=== PATIENT | female | born 1950 | race Hispanic/Latino ===

== ENCOUNTER 2018-01-19 05:47 | Day surgery (SDC) | payer OTHER ==
[2018-01-17 10:39] VITALS: BP 155/71
[2018-01-17 10:48] LABS: APPEARANCE,URINE Clear (CLEAR); BASOPHILS % (AUTO) 0.8 % (0.0-5.0); BILIRUBIN,URINE Negative (NEGATIVE); COLOR,URINE Dark Yellow (YELLOW); EOSINOPHILS % (AUTO) 1.5 % (0.0-8.0); GLUCOSE, URINE (UA) 500 mg/dL (NEGATIVE); HEMATOCRIT 39.9 % (36-48); KETONES,URINE Negative (NEGATIVE); LEUKOCYTE ESTERASE ,URINE Trace (NEGATIVE); LYMPHOCYTES % (AUTO) 34.3 % (21.0-51.0); MEAN CORPUSCULAR HEMOGLOBIN 32.8 pg (27.0-33.0); MEAN CORPUSCULAR HGB CONC 34.4 g/dL (32.0-36.0); MEAN CORPUSCULAR VOLUME 95.3 fL (79-99); NEUTROPHILS % (AUTO) 54.4 % (40.0-77.0); NITRATE,URINE Negative (NEGATIVE); OCCULT BLOOD,URINE Negative (NEGATIVE); PLATELET COUNT (AUTO) 194 K/uL (130-400); PROTEIN,URINE Negative (NEGATIVE); RED BLOOD CELL COUNT(AUTO) 4.18 MIL/uL (4.00-5.50); RED CELL DISTRIBUTION WIDTH 13.7 % (11.0-15.5); UROBILINOGEN,URINE 0.2 mg/dL (0.2-1.0); WHITE BLOOD COUNT (AUTO) 6.6 K/uL (4.8-10.8)
[2018-01-17 10:56] LABS: CREATININE 0.8 mg/dL (0.5-1.5); POTASSIUM 4.3 mmol/L (3.5-5.1)
[2018-01-17 11:00] LABS: BACTERIA,URINE Rare /HPF (None Seen); RBC,URINE None Seen /HPF (0-1); SQUAMOUS EPITHELIAL CELL,UR 0-2 /HPF (0-2); WBC,URINE 0-1 /HPF (0-1)
[2018-01-17 11:33] LABS: INR 1.13 (0.85-1.15); PARTIAL THROMBOPLASTIN TIME 26.1 SEC (26.3-35.5); PROTHROMBIN TIME 11.8 SEC (9.6-11.6)
[2018-01-19] VITALS (9 sets, daily range): BP systolic 114–178; BP diastolic 60–74
[~2018-01-19] VITALS: Ht 162.6 cm; Wt 93.4 kg
[~2018-01-19 05:47] MED LIST: ADV250 IH; ASPI-1005 PO; DORZ210OS OU; ESCI20TA36 PO; GLIP5TAB11 PO; LISI10TA7 PO; METF10004 PO; OMEGA 3 PO; PERFECT BIOTICS PO; SUPER B COMPLEX PO; VITAMIN A PO
[2018-01-19] MEDS ORDERED: IOPAMIDOL-370 100 ML VIAL IV ONE (07:15)
[2018-01-19] MEDS ORDERED: HEPARIN SODIUM 1000UNIT/ML 10ML VIAL ONE (07:15)
[2018-01-19] MEDS ORDERED: ISOVUE-370 50ML VIAL IV ONE (07:15)
[2018-01-19] MEDS ORDERED: SODIUM BICARB 50MEQ 50ML VIAL ONE (07:15)
[2018-01-19] MEDS ORDERED: LIDOCAINE HCL 2% 20ML ONE (07:15)
[2018-01-19] MEDS ORDERED: NITROGLYCERIN 5 MG/ML 10 ML VIAL IV ONE (07:15)
[2018-01-19] MEDS ORDERED: MEPERIDINE-PF 25 MG/ML SYG ONE ×2 (07:30→07:42)
[2018-01-19] MEDS ORDERED: MIDAZOLAM HCL 1 MG/ML 2ML VIAL ONE ×2 (07:30→07:42)
[2018-01-19] MEDS ORDERED: METOPROLOL TARTRATE 1 MG/ML 5ML VIAL IV ONE ×3 (07:57→08:09)
[2018-01-19] MEDS ORDERED: SODIUM CHLORIDE 0.9% 10 ML VIAL IVP SCH (08:30)
[2018-01-19] MEDS ORDERED: DEXTROSE 50%-WATER 50 ML DISP.SYRIN IV PRN (08:30)
[2018-01-19] MEDS ORDERED: GLUCAGON 1MG KIT 1 MG ML IM PRN (08:30)
[2018-01-19] MEDS ORDERED: POTA20TA12 PO (08:38)
[2018-01-19] MEDS ORDERED: METO25TA6 PO (08:38)
[2018-01-19] MEDS ORDERED: FURO-151 PO (08:38)
[2018-01-19] MEDS ORDERED: INSULIN HUMULIN R 100 UNIT/ML 3ML SQ SCH (11:30)
== END 2018-01-19 13:20 | disposition home or self-care (01) ==
LOC: DAH 05:47
PROVIDERS: ATTEND Internal Medicine Cardiovascular Disease
DX: I25.118 Atherosclerotic heart disease of native coronary artery with other forms of angina pectoris (principal); I35.0 Nonrheumatic aortic (valve) stenosis; Z79.01 Long term (current) use of anticoagulants; I10 Essential (primary) hypertension; J44.9 Chronic obstructive pulmonary disease, unspecified; E78.5 Hyperlipidemia, unspecified; E11.9 Type 2 diabetes mellitus without complications; Z86.73 Personal history of transient ischemic attack (TIA), and cerebral infarction without residual deficits; Z98.890 Other specified postprocedural states; Z85.3 Personal history of malignant neoplasm of breast; Z83.3 Family history of diabetes mellitus; Z82.49 Family history of ischemic heart disease and other diseases of the circulatory system; Z79.899 Other long term (current) drug therapy; Z68.32 Body mass index [BMI] 32.0-32.9, adult
CPT/HCPCS: 36415; 71045; 80048; 81001; 82948 ×2; 85025; 85610; 85730; 93005; 93460; 99152 ×2; 99153; A4606; C1760; C1769; C1893; C1894 ×2; J1644; J2175 ×2; J2250 ×2; J3490 ×6; Q9967 ×2; 99156; 99157

== ENCOUNTER 2018-01-30 09:00 | Inpatient (IN) | payer OTHER ==
[~2018-01-30] VITALS: Ht 162.6 cm; Wt 88.0 kg
[~2018-01-30 09:00] MED LIST changes: -ASPI-1005 PO; -ESCI20TA36 PO; +FURO-151 PO; +METO25TA6 PO; +POTA20TA12 PO
[2018-01-30 11:11] LABS: BASOPHILS % (AUTO) 1.1 % (0.0-5.0); EOSINOPHILS % (AUTO) 1.5 % (0.0-8.0); HEMATOCRIT 41.9 % (36-48); LYMPHOCYTES % (AUTO) 37.8 % (21.0-51.0); MEAN CORPUSCULAR HEMOGLOBIN 32.7 pg (27.0-33.0); MEAN CORPUSCULAR HGB CONC 34.8 g/dL (32.0-36.0); MEAN CORPUSCULAR VOLUME 94.1 fL (79-99); MONOCYTES % (AUTO) 6.9 % (3.0-13.0); NEUTROPHILS % (AUTO) 52.7 % (40.0-77.0); NUCLEATED RED BLOOD CELLS 0.1 % (0.0-0.19); PLATELET COUNT (AUTO) 235 K/uL (130-400); RED BLOOD CELL COUNT(AUTO) 4.46 MIL/uL (4.00-5.50); RED CELL DISTRIBUTION WIDTH 13.3 % (11.0-15.5); WHITE BLOOD COUNT (AUTO) 7.6 K/uL (4.8-10.8)
[2018-01-30 11:15] VITALS: BP 132/68
[2018-01-30 11:18] LABS: HEMOGLOBIN A1C 7.8 % (4.0-6.0)
[2018-01-30] MEDS ORDERED: ASPI-555 PO (11:19)
[2018-01-30 11:30] LABS: ALBUMIN 4.1 g/dL (3.5-5.0); BILIRUBIN,TOTAL 0.5 mg/dL (0.2-1.0); CREATININE 0.8 mg/dL (0.5-1.5); POTASSIUM 4.3 mmol/L (3.5-5.1); TOTAL PROTEIN, SERUM 8.5 g/dL (6.0-8.3)
[2018-01-30 11:42] LABS: INR 1.15 (0.85-1.15); PARTIAL THROMBOPLASTIN TIME 26.1 SEC (26.3-35.5)
[2018-01-31] VITALS (16 sets, daily range): BP systolic 127–194; BP diastolic 44–90
[2018-01-31] MEDS ORDERED: SODIUM CHLORIDE 0.9% 1000ML 1,000 ML IV ONE ×2 (06:39→11:19)
[2018-01-31] MEDS ORDERED: BACITRACIN 50,000 UNIT VIAL ONE (06:53)
[2018-01-31] MEDS ORDERED: NITROGLYCERIN 50 MG/D5% WATER 1 BOT ONE (07:21)
[2018-01-31] MEDS ORDERED: ROCURONIUM BROMIDE 10MG/1ML 5ML VL ONE ×3 (07:22→10:07)
[2018-01-31] MEDS ORDERED: CEFUROXIME SODIUM 1.5 GM VIAL IVP ONE (08:00)
[2018-01-31] MEDS: CEFUROXIME SODIUM 1.5 GM VIAL ONE ×2 (08:01→08:30)
[2018-01-31] MEDS ORDERED: MILRINONE-D5W 20 MG/100 ML 100 ML IV ONE (08:09)
[2018-01-31] MEDS ORDERED: EPINEPHRINE 1 MG/ML AMPULE ONE (08:09)
[2018-01-31] MEDS ORDERED: NEOSTIGMINE 5MG/5ML SYR IV ONE (08:09)
[2018-01-31] MEDS ORDERED: HEPARIN SODIUM 1000UNIT/ML 10ML VIAL ONE (08:09)
[2018-01-31] MEDS ORDERED: ESMOLOL HCL 10 MG/ML 10 ML VIAL ONE (08:09)
[2018-01-31] MEDS ORDERED: GLYCOPYRROLATE 0.2 MG/ML 5 ML VIAL ONE (08:09)
[2018-01-31] MEDS ORDERED: PROTAMINE SULFATE 10 MG/ML 25ML VIAL IV ONE (08:09)
[2018-01-31] MEDS ORDERED: LIDOCAINE PF 2% 5ML ABBOJECT ONE (08:09)
[2018-01-31] MEDS ORDERED: AMINOCAPROIC ACID 250 MG/ML 20 ML VIAL IV ONE ×2 (08:10→12:00)
[2018-01-31] MEDS ORDERED: FENTANYL CITRATE PF 50 MCG/1 ML 20ML VIAL IJ ONE (08:10)
[2018-01-31] MEDS ORDERED: NOREPINEPHRINE BITARTRATE 1 MG/1 ML ML IV ONE (08:10)
[2018-01-31] MEDS ORDERED: PROPOFOL 10 MG/ML 20ML VIAL IV ONE (08:10)
[2018-01-31] MEDS ORDERED: MIDAZOLAM HCL 1 MG/ML 5ML VIAL ONE (08:10)
[2018-01-31] MEDS ORDERED: THROMBIN-JMI 5000 UNIT/VIAL TP ONE (08:45)
[2018-01-31] MEDS ORDERED: DELNIDO FORMULA 2 BAG IV ONE (08:45)
[2018-01-31 08:47] LABS: ABG BASE EXCESS -0.7 mmol/L (-2.0-3.0); ABG HCO3 23.9 mmol/L (21.0-28.0); ABG OXYGEN SATURATION 99.6 % (95.0-99.0); ABG PCO2 40 mmHg (32-45)
[2018-01-31] MEDS ORDERED: INSULIN HUMULIN R 100 UNIT/ML 3ML ONE (09:58)
[2018-01-31 10:04] LABS: ABG HCO3 24.4 mmol/L (21.0-28.0); ABG OXYGEN SATURATION 99.4 % (95.0-99.0); ABG PCO2 43 mmHg (32-45)
[2018-01-31] MEDS ORDERED: METHYLPREDNISOLONE SOD SUCC 1,000 MG/8 ML ML IV ONE (10:18)
[2018-01-31 10:34] LABS: ABG BASE EXCESS -5.4 mmol/L (-2.0-3.0); ABG HCO3 20.1 mmol/L (21.0-28.0); ABG OXYGEN SATURATION 99.3 % (95.0-99.0); ABG PCO2 39 mmHg (32-45)
[2018-01-31] MEDS ORDERED: SODIUM CHLORIDE 0.9% 500ML 500 ML IV SCH (10:50)
[2018-01-31] MEDS ORDERED: EPINEPHRINE 2 MG in SODIUM CHLORIDE 0.9% 250 ML IV PRN (11:00)
[2018-01-31] MEDS ORDERED: MORPHINE SULFATE 4 MG/1ML SYG IV PRN (11:00)
[2018-01-31] MEDS ORDERED: POTASSIUM PHOS 15 mMOL+NS250ML 250 ML IV PRN (11:00)
[2018-01-31] MEDS ORDERED: CALCIUM GLUCONATE 1 GM in SODIUM CHLORIDE 0.9% 50 ML IV PRN (11:00)
[2018-01-31] MEDS ORDERED: ONDANSETRON HCL 4 MG/2 ML VIAL IV PRN (11:00)
[2018-01-31] MEDS ORDERED: ACETAMINOPHEN 650 MG SUPPOSITORY RC PRN (11:00)
[2018-01-31] MEDS ORDERED: GLUCAGON 1MG KIT 1 MG ML IM PRN (11:00)
[2018-01-31] MEDS ORDERED: AMINOCAPROIC ACID 15,000 MG in SODIUM CHLORIDE 0.9% 250 ML IV SCH (11:00)
[2018-01-31] MEDS ORDERED: SODIUM CHLORIDE 0.9% 1000ML 1,000 ML IV SCH (11:00)
[2018-01-31] MEDS ORDERED: SODIUM CHLORIDE 0.9% 10 ML VIAL IVP PRN (11:00)
[2018-01-31] MEDS ORDERED: NOREPINEPHRINE 4MG/NS 250ML 250 ML IV PRN (11:00)
[2018-01-31] MEDS ORDERED: NICARDIPINE HCL 100 MG in SODIUM CHLORIDE 0.9% 60 ML IV PRN (11:00)
[2018-01-31] MEDS ORDERED: MORPHINE SULFATE 2 MG/ML 1ML SYG IV PRN (11:00)
[2018-01-31] MEDS ORDERED: PROPOFOL 1000 MG/100 ML 100 ML IV PRN (11:00)
[2018-01-31] MEDS ORDERED: DEXTROSE 50%-WATER 50 ML DISP.SYRIN IV PRN (11:00)
[2018-01-31] MEDS ORDERED: ALBUMIN (HUMAN) 5% 250 ML IV PRN (11:00)
[2018-01-31] MEDS ORDERED: SODIUM CHLORIDE 0.9% 250 ML IV PRN (11:00)
[2018-01-31] MEDS ORDERED: NITROGLYCERIN 50 MG/D5% WATER 250 BOT IV SCH (11:00)
[2018-01-31] MEDS ORDERED: ACETAMINOPHEN 325 MG TAB PO PRN (11:00)
[2018-01-31 11:05] LABS: ABG BASE EXCESS -4.3 mmol/L (-2.0-3.0); ABG HCO3 20.8 mmol/L (21.0-28.0); ABG PCO2 38 mmHg (32-45)
[2018-01-31] MEDS: AMBU PUMP 1 EACH EACH MISC SCH ×2 (11:35→12:52)
[2018-01-31] MEDS ORDERED: FENTANYL CITRATE PF 50 MCG/1 ML 2ML VIAL ONE (11:36)
[2018-01-31 11:58] LABS: ABG BASE EXCESS -3.4 mmol/L (-2.0-3.0); ABG OXYGEN SATURATION 98.8 % (95.0-99.0); ABG PCO2 41 mmHg (32-45)
[2018-01-31] MEDS ORDERED: CALCIUM CHLORIDE 100 MG/ML 10 ML SYG IVP ONE (12:00)
[2018-01-31] MEDS ORDERED: PHENYLEPHRINE HCL 10 MG/ML 1ML VIAL IV ONE (12:00)
[2018-01-31] MEDS ORDERED: ALBUMIN (HUMAN) 25% 50 ML IV ONE (12:00)
[2018-01-31] MEDS ORDERED: MANNITOL 25% 50ML VIAL IV ONE (12:00)
[2018-01-31] MEDS ORDERED: HEPARIN SODIUM 1000UNIT/ML 10ML VIAL IV ONE (12:00)
[2018-01-31] MEDS ORDERED: SODIUM BICARB 8.4% 50ML SYRINGE IVP ONE (12:00)
[2018-01-31 12:03] LABS: HEMATOCRIT 38.5 % (36-48); MEAN CORPUSCULAR HEMOGLOBIN 32.3 pg (27.0-33.0); MEAN CORPUSCULAR HGB CONC 34.2 g/dL (32.0-36.0); MEAN CORPUSCULAR VOLUME 94.4 fL (79-99); PLATELET COUNT (AUTO) 180 K/uL (130-400); RED BLOOD CELL COUNT(AUTO) 4.07 MIL/uL (4.00-5.50); RED CELL DISTRIBUTION WIDTH 13.2 % (11.0-15.5); WHITE BLOOD COUNT (AUTO) 20.8 K/uL (4.8-10.8)
[2018-01-31 12:19] LABS: CREATININE 0.8 mg/dL (0.5-1.5); MAGNESIUM 1.7 mg/dL (1.80-2.40); PHOSPHORUS 3.1 mg/dL (2.5-4.9); POTASSIUM 3.2 mmol/L (3.5-5.1)
[2018-01-31] MEDS: POTASSIUM CHLORIDE 20MEQ/100ML 100 ML IV PRN ×3 (12:49→18:01)
[2018-01-31] MEDS: INSULIN REGULAR, HUMAN 3ML 100 UNIT in SODIUM CHLORIDE 0.9% 99 ML IV SCH ×4 (12:53→21:39)
[2018-01-31] MEDS: MAGNESIUM 2GM PREMIX 50ML 50 ML IV PRN (13:00)
[2018-01-31 14:24] LABS: ABG BASE EXCESS -4.8 mmol/L (-2.0-3.0); ABG HCO3 20.5 mmol/L (21.0-28.0); ABG OXYGEN SATURATION 98.4 % (95.0-99.0); ABG PCO2 39 mmHg (32-45)
[2018-01-31] MEDS ORDERED: SODIUM BICARB 50MEQ 50ML VIAL ONE ×2 (14:26→20:33)
[2018-01-31] MEDS: SODIUM BICARB 8.4% 50ML SYRINGE IV PRN ×2 (14:29→20:33)
[2018-01-31 15:44] LABS: ABG BASE EXCESS -1.9 mmol/L (-2.0-3.0); ABG OXYGEN SATURATION 99.1 % (95.0-99.0); ABG PCO2 35 mmHg (32-45)
[2018-01-31] MEDS: HYDROCODONE/ACETAMINOPHEN 5/325 MG TAB PO PRN ×2 (18:04→22:50)
[2018-01-31] MEDS ORDERED: CEFUROXIME 1.5GM+NS 100ML 100 ML IV SCH (19:00)
[2018-01-31] MEDS: CEFUROXIME SODIUM 1.5 GM VIAL IVP SCH (19:52)
[2018-01-31 20:15] LABS: ABG BASE EXCESS -3.8 mmol/L (-2.0-3.0); ABG HCO3 19.9 mmol/L (21.0-28.0); ABG OXYGEN SATURATION 97.8 % (95.0-99.0); ABG PCO2 33 mmHg (32-45)
[2018-02-01] VITALS (24 sets, daily range): BP systolic 110–160; BP diastolic 44–94
[2018-02-01] MEDS: HYDROCODONE/ACETAMINOPHEN 5/325 MG TAB PO PRN ×2 (02:54→09:38)
[2018-02-01 04:17] LABS: HEMATOCRIT 37.5 % (36-48); MEAN CORPUSCULAR HEMOGLOBIN 32.3 pg (27.0-33.0); MEAN CORPUSCULAR HGB CONC 34.3 g/dL (32.0-36.0); PLATELET COUNT (AUTO) 134 K/uL (130-400); RED CELL DISTRIBUTION WIDTH 13.7 % (11.0-15.5); WHITE BLOOD COUNT (AUTO) 22.2 K/uL (4.8-10.8)
[2018-02-01 04:30] LABS: CREATININE 0.9 mg/dL (0.5-1.5); MAGNESIUM 1.7 mg/dL (1.80-2.40); PHOSPHORUS 3.1 mg/dL (2.5-4.9); POTASSIUM 3.8 mmol/L (3.5-5.1)
[2018-02-01] MEDS: POTASSIUM CHLORIDE 20MEQ/100ML 100 ML IV PRN (04:49)
[2018-02-01] MEDS: MAGNESIUM 2GM PREMIX 50ML 50 ML IV PRN (06:04)
[2018-02-01] MEDS: CEFUROXIME SODIUM 1.5 GM VIAL IVP SCH ×2 (07:10→18:25)
[2018-02-01] MEDS: PANTOPRAZOLE SODIUM 40 MG TABLET.DR PO SCH (09:35)
[2018-02-01] MEDS: AMBU PUMP 1 EACH EACH MISC SCH (11:00)
[2018-02-01] MEDS: METOPROLOL TARTRATE 25 MG TAB PO SCH ×2 (13:17→20:15)
[2018-02-01] MEDS: INSULIN REGULAR, HUMAN 3ML 100 UNIT in SODIUM CHLORIDE 0.9% 99 ML IV SCH ×2 (18:16)
[2018-02-01] MEDS: FUROSEMIDE 20 MG TABLET PO SCH (20:16)
[2018-02-02] VITALS (15 sets, daily range): BP systolic 110–176; BP diastolic 54–78
[2018-02-02 04:31] LABS: HEMATOCRIT 31.9 % (36-48); MEAN CORPUSCULAR HEMOGLOBIN 33.5 pg (27.0-33.0); MEAN CORPUSCULAR HGB CONC 35.2 g/dL (32.0-36.0); MEAN CORPUSCULAR VOLUME 95.1 fL (79-99); PLATELET COUNT (AUTO) 104 K/uL (130-400); RED BLOOD CELL COUNT(AUTO) 3.35 MIL/uL (4.00-5.50); RED CELL DISTRIBUTION WIDTH 13.5 % (11.0-15.5); WHITE BLOOD COUNT (AUTO) 26.3 K/uL (4.8-10.8)
[2018-02-02 05:10] LABS: CREATININE 0.6 mg/dL (0.5-1.5)
[2018-02-02] MEDS ORDERED: LIDOCAINE HCL-MPF 1% 2ML VIAL IVP PRN (06:30)
[2018-02-02] MEDS ORDERED: POTASSIUM CHLORIDE 10% ELIXIR 20 MEQ/15 ML UDCUP PO PRN (06:30)
[2018-02-02] MEDS ORDERED: POTASSIUM CHLORIDE 20MEQ/100ML 100 ML IV PRN (06:30)
[2018-02-02] MEDS: POTASSIUM CHLORIDE 20MEQ/100ML 100 ML IV PRN (06:42)
[2018-02-02] MEDS ORDERED: GLUCAGON 1MG KIT 1 MG ML IM PRN (07:00)
[2018-02-02] MEDS ORDERED: DEXTROSE 50%-WATER 50 ML DISP.SYRIN IV PRN (07:00)
[2018-02-02] MEDS: INSULIN HUMULIN R 100 UNIT/ML 3ML SQ SCH ×4 (07:30→21:55)
[2018-02-02] MEDS: FUROSEMIDE 20 MG TABLET PO SCH ×2 (10:38→20:24)
[2018-02-02] MEDS: METOPROLOL TARTRATE 25 MG TAB PO SCH ×2 (10:38→20:24)
[2018-02-02] MEDS: ASPIRIN 81 MG EC TAB PO SCH (10:38)
[2018-02-02] MEDS: PANTOPRAZOLE SODIUM 40 MG TABLET.DR PO SCH (10:38)
[2018-02-02] MEDS: AMBU PUMP 1 EACH EACH MISC SCH (11:00)
[2018-02-02] MEDS: HYDROCODONE/ACETAMINOPHEN 5/325 MG TAB PO PRN (13:29)
[2018-02-02] MEDS ORDERED: IPRATROPIUM/ALBUTEROL SULFATE 3 ML SOLUTION IH PRN (14:15)
[2018-02-02] MEDS ORDERED: AMIODARONE HCL IV SCH (19:00)
[2018-02-02] MEDS ORDERED: SODIUM CHLORIDE 0.9% IV SCH (19:00)
[2018-02-02] MEDS ORDERED: AMIODARONE HCL 150 MG in DEXTROSE 5%-WATER 100 ML IV SCH (19:00)
[2018-02-03 04:00] VITALS: BP 130/84
[2018-02-03 04:41] LABS: MEAN CORPUSCULAR HEMOGLOBIN 32.2 pg (27.0-33.0); MEAN CORPUSCULAR HGB CONC 33.6 g/dL (32.0-36.0); MEAN CORPUSCULAR VOLUME 95.8 fL (79-99); PLATELET COUNT (AUTO) 107 K/uL (130-400); RED BLOOD CELL COUNT(AUTO) 3.66 MIL/uL (4.00-5.50); RED CELL DISTRIBUTION WIDTH 13.7 % (11.0-15.5); WHITE BLOOD COUNT (AUTO) 19.4 K/uL (4.8-10.8)
[2018-02-03 04:49] LABS: CREATININE 0.6 mg/dL (0.5-1.5); MAGNESIUM 1.7 mg/dL (1.80-2.40); POTASSIUM 3.7 mmol/L (3.5-5.1)
[2018-02-03] MEDS: INSULIN HUMULIN R 100 UNIT/ML 3ML SQ SCH ×4 (07:26→21:36)
[2018-02-03 07:33] VITALS: BP 135/74
[2018-02-03] MEDS: FUROSEMIDE 20 MG TABLET PO SCH ×2 (09:17→21:28)
[2018-02-03] MEDS: ASPIRIN 81 MG EC TAB PO SCH (09:17)
[2018-02-03] MEDS: ENOXAPARIN SODIUM 30 MG/0.3 ML SQ SCH (09:17)
[2018-02-03] MEDS: METOPROLOL TARTRATE 25 MG TAB PO SCH ×2 (09:17→21:28)
[2018-02-03] MEDS: PANTOPRAZOLE SODIUM 40 MG TABLET.DR PO SCH (09:17)
[2018-02-03] MEDS: POTASSIUM CHLORIDE 20 MEQ ERTAB PO PRN (10:10)
[2018-02-03] MEDS: LACTULOSE 20 GM/30 ML UDCUP PO PRN (10:32)
[2018-02-03] MEDS: AMBU PUMP 1 EACH EACH MISC SCH (11:00)
[2018-02-03 11:18] VITALS: BP 140/73
[2018-02-03] MEDS: MAGNESIUM 2GM PREMIX 50ML 50 ML IV PRN (16:06)
[2018-02-03 16:11] VITALS: BP 134/65
[2018-02-03] MEDS ORDERED: MAGNESIUM 2GM PREMIX 50ML 50 ML IV SCH (16:15)
[2018-02-03] MEDS: METFORMIN HCL 500 MG TABLET PO SCH (17:13)
[2018-02-03 19:28] VITALS: BP 140/60
[2018-02-03] MEDS: AMIODARONE HCL 200 MG TABLET PO SCH (21:28)
[2018-02-03] MEDS: GLIPIZIDE 5 MG TABLET PO SCH (21:28)
[2018-02-03 23:28] VITALS: BP 157/70
[2018-02-04] MEDS: POTASSIUM CHLORIDE 20 MEQ ERTAB PO PRN ×3 (01:51→16:18)
[2018-02-04 03:56] VITALS: BP 151/74
[2018-02-04] MEDS: INSULIN HUMULIN R 100 UNIT/ML 3ML SQ SCH ×4 (06:45→21:00)
[2018-02-04 07:13] VITALS: BP 137/71
[2018-02-04] MEDS: METFORMIN HCL 500 MG TABLET PO SCH ×2 (08:04→16:36)
[2018-02-04] MEDS: ENOXAPARIN SODIUM 30 MG/0.3 ML SQ SCH (08:04)
[2018-02-04] MEDS: GLIPIZIDE 5 MG TABLET PO SCH ×2 (08:05→21:09)
[2018-02-04] MEDS: ASPIRIN 81 MG EC TAB PO SCH (08:05)
[2018-02-04] MEDS: PANTOPRAZOLE SODIUM 40 MG TABLET.DR PO SCH (08:05)
[2018-02-04] MEDS: FUROSEMIDE 20 MG TABLET PO SCH ×2 (08:05→21:09)
[2018-02-04] MEDS: AMIODARONE HCL 200 MG TABLET PO SCH ×2 (08:05→21:09)
[2018-02-04] MEDS: METOPROLOL TARTRATE 25 MG TAB PO SCH ×2 (08:05→21:11)
[2018-02-04] MEDS: LACTULOSE 20 GM/30 ML UDCUP PO PRN (08:20)
[2018-02-04] MEDS: AMBU PUMP 1 EACH EACH MISC SCH (11:00)
[2018-02-04 11:22] VITALS: BP 138/77
[2018-02-04] MEDS ORDERED: AMIODARONE HCL 150 MG in DEXTROSE 5%-WATER 100 ML IV SCH (12:15)
[2018-02-04] MEDS ORDERED: AMIODARONE HCL 900 MG in DEXTROSE 5%-WATER 500 ML IV SCH (12:15)
[2018-02-04 13:10] LABS: CREATININE 0.9 mg/dL (0.5-1.5); POTASSIUM 3.8 mmol/L (3.5-5.1)
[2018-02-04] MEDS ORDERED: DIGOXIN 250 MCG/ML 2ML AMP IV SCH (16:15)
[2018-02-04 16:40] VITALS: BP 149/83
[2018-02-04 19:58] VITALS: BP 147/75
[2018-02-04] MEDS: HYDROCODONE/ACETAMINOPHEN 5/325 MG TAB PO PRN (23:28)
[2018-02-04 23:32] VITALS: BP 125/66
[2018-02-05 04:54] VITALS: BP 127/75
[2018-02-05 05:02] LABS: BASOPHILS % (AUTO) 0.1 % (0.0-5.0); EOSINOPHILS % (AUTO) 1.5 % (0.0-8.0); HEMATOCRIT 40.1 % (36-48); LYMPHOCYTES % (AUTO) 28.3 % (21.0-51.0); MEAN CORPUSCULAR HEMOGLOBIN 33.9 pg (27.0-33.0); MEAN CORPUSCULAR HGB CONC 35.7 g/dL (32.0-36.0); NEUTROPHILS % (AUTO) 61.1 % (40.0-77.0); NUCLEATED RED BLOOD CELLS 0.1 % (0.0-0.19); PLATELET COUNT (AUTO) 170 K/uL (130-400); RED BLOOD CELL COUNT(AUTO) 4.22 MIL/uL (4.00-5.50); RED CELL DISTRIBUTION WIDTH 13.3 % (11.0-15.5); WHITE BLOOD COUNT (AUTO) 14.9 K/uL (4.8-10.8)
[2018-02-05 05:14] LABS: CREATININE 0.7 mg/dL (0.5-1.5); POTASSIUM 4.1 mmol/L (3.5-5.1)
[2018-02-05] MEDS: INSULIN HUMULIN R 100 UNIT/ML 3ML SQ SCH ×4 (05:30→21:00)
[2018-02-05] MEDS: ASPIRIN 81 MG EC TAB PO SCH (07:29)
[2018-02-05] MEDS: PANTOPRAZOLE SODIUM 40 MG TABLET.DR PO SCH (07:29)
[2018-02-05] MEDS: METFORMIN HCL 500 MG TABLET PO SCH ×2 (07:30→16:32)
[2018-02-05] MEDS: METOPROLOL TARTRATE 25 MG TAB PO SCH ×2 (07:30→21:39)
[2018-02-05] MEDS: GLIPIZIDE 5 MG TABLET PO SCH ×2 (07:30→21:38)
[2018-02-05] MEDS: FUROSEMIDE 20 MG TABLET PO SCH ×2 (07:30→21:00)
[2018-02-05] MEDS: AMIODARONE HCL 200 MG TABLET PO SCH (07:30)
[2018-02-05] MEDS: ENOXAPARIN SODIUM 30 MG/0.3 ML SQ SCH (07:31)
[2018-02-05] MEDS: AMBU PUMP 1 EACH EACH MISC SCH (07:34)
[2018-02-05 08:10] VITALS: BP 141/90
[2018-02-05] MEDS: LACTULOSE 20 GM/30 ML UDCUP PO PRN (08:30)
[2018-02-05] MEDS ORDERED: AMIODARONE HCL 200 MG TABLET PO SCH (09:00)
[2018-02-05 11:24] VITALS: BP 122/83
[2018-02-05 16:37] VITALS: BP 132/73
[2018-02-05 19:58] VITALS: BP 129/73
[2018-02-05] MEDS: HYDROCODONE/ACETAMINOPHEN 5/325 MG TAB PO PRN (21:40)
[2018-02-06] VITALS (7 sets, daily range): BP systolic 117–137; BP diastolic 53–74
[2018-02-06] MEDS: HYDROCODONE/ACETAMINOPHEN 5/325 MG TAB PO PRN (01:42)
[2018-02-06] MEDS: FUROSEMIDE 20 MG TABLET PO SCH ×2 (06:30→21:13)
[2018-02-06] MEDS: INSULIN HUMULIN R 100 UNIT/ML 3ML SQ SCH ×4 (06:50→21:00)
[2018-02-06] MEDS: ASPIRIN 81 MG EC TAB PO SCH (07:23)
[2018-02-06] MEDS: PANTOPRAZOLE SODIUM 40 MG TABLET.DR PO SCH (07:23)
[2018-02-06] MEDS: AMIODARONE HCL 200 MG TABLET PO SCH (07:24)
[2018-02-06] MEDS: METFORMIN HCL 500 MG TABLET PO SCH ×2 (07:24→16:03)
[2018-02-06] MEDS: METOPROLOL TARTRATE 25 MG TAB PO SCH ×2 (07:24→21:13)
[2018-02-06] MEDS: GLIPIZIDE 5 MG TABLET PO SCH ×2 (07:24→21:13)
[2018-02-06] MEDS: ENOXAPARIN SODIUM 30 MG/0.3 ML SQ SCH (07:24)
[2018-02-06] MEDS: AMBU PUMP 1 EACH EACH MISC SCH (07:26)
[2018-02-07 03:31] VITALS: BP 125/73
[2018-02-07] MEDS: INSULIN HUMULIN R 100 UNIT/ML 3ML SQ SCH ×2 (07:30→11:30)
[2018-02-07 07:54] VITALS: BP 113/60
[2018-02-07 08:25] VITALS: BP 125/63
[2018-02-07] MEDS: METFORMIN HCL 500 MG TABLET PO SCH (08:27)
[2018-02-07] MEDS: PANTOPRAZOLE SODIUM 40 MG TABLET.DR PO SCH (08:28)
[2018-02-07] MEDS: GLIPIZIDE 5 MG TABLET PO SCH (08:28)
[2018-02-07] MEDS: AMIODARONE HCL 200 MG TABLET PO SCH (08:28)
[2018-02-07] MEDS: ASPIRIN 81 MG EC TAB PO SCH (08:29)
[2018-02-07] MEDS: FUROSEMIDE 20 MG TABLET PO SCH (08:29)
[2018-02-07] MEDS: METOPROLOL TARTRATE 25 MG TAB PO SCH (08:29)
[2018-02-07] MEDS: ENOXAPARIN SODIUM 30 MG/0.3 ML SQ SCH (08:32)
[2018-02-07] MEDS: AMBU PUMP 1 EACH EACH MISC SCH (10:07)
[2018-02-07 11:37] VITALS: BP 115/59
[2018-02-08] MEDS ORDERED: MAGNESIUM OXIDE 400 MG TABLET PO ONE (01:16)
[2018-02-08] MEDS ORDERED: POTASSIUM CHLORIDE 20 MEQ ERTAB PO ONE (01:17)
== END 2018-02-07 16:45 | DRG 220 ==
LOC: DAHIP 01-31 05:45 → 2CV 01-31 09:26 → 2BH 01-31 16:47 → 2AH 02-02 12:33
PROVIDERS: ADMIT Thoracic Surgery (Cardiothoracic Vascular Surgery); ATTEND Thoracic Surgery (Cardiothoracic Vascular Surgery)
PROC: 02RF08Z Replacement of Aortic Valve with Zooplastic Tissue, Open Approach (ICD-10-PCS; principal; 2018-01-31 08:09)
PROC: 05HY33Z Insertion of Infusion Device into Upper Vein, Percutaneous Approach (ICD-10-PCS; 2018-01-31 08:09)
DX: I35.0 Nonrheumatic aortic (valve) stenosis (principal); E87.1 Hypo-osmolality and hyponatremia; E11.65 Type 2 diabetes mellitus with hyperglycemia; E66.01 Morbid (severe) obesity due to excess calories; I48.0 Paroxysmal atrial fibrillation; I50.9 Heart failure, unspecified; I11.0 Hypertensive heart disease with heart failure; D64.9 Anemia, unspecified; Z68.33 Body mass index [BMI] 33.0-33.9, adult; E87.6 Hypokalemia; E83.51 Hypocalcemia; E83.42 Hypomagnesemia; E78.5 Hyperlipidemia, unspecified; J44.9 Chronic obstructive pulmonary disease, unspecified; Z79.4 Long term (current) use of insulin; Z79.82 Long term (current) use of aspirin; Z79.899 Other long term (current) drug therapy; Z85.3 Personal history of malignant neoplasm of breast; Z86.73 Personal history of transient ischemic attack (TIA), and cerebral infarction without residual deficits
CPT/HCPCS: 36415; 71045; 71046; 76998; 80048; 80053; 80061; 82330; 82435; 82803; 82947; 82948; 83036; 83605; 83735; 84100; 84132; 84295; 85018; 85025; 85027; 85347; 85610; 85730; 86850; 86900; 86901; 86922; 88305; 88311; 93005; 93318; 93880; 94002; 94010; 94150; 94664; 97039; A4218; A7048; C9113; J0171; J0282; J0610; J0697; J1160; J1644; J1650; J1815; J2001; J2150; J2250; J2260; J2270; J2370; J2704; J2710; J2720; J2930; J3010; J3475; J3480; J3490; J7030; J7040; J7060; P9047

== ENCOUNTER 2018-02-07 20:49 | Inpatient (IN) | payer OTHER ==
[~2018-02-07] VITALS: Ht 160 cm; Wt 85.4 kg
[~2018-02-07 20:49] MED LIST changes: +ASPI-555 PO
[2018-02-07] MEDS ORDERED: METOPROLOL TARTRATE 1 MG/ML 5ML VIAL IV ONE ×3 (21:03→21:44)
[2018-02-07 21:37] LABS: APPEARANCE,URINE Clear (CLEAR); BILIRUBIN,URINE Negative (NEGATIVE); COLOR,URINE Yellow (YELLOW); GLUCOSE, URINE (UA) Negative (NEGATIVE); KETONES,URINE Negative (NEGATIVE); LEUKOCYTE ESTERASE ,URINE Small (NEGATIVE); NITRATE,URINE Negative (NEGATIVE); OCCULT BLOOD,URINE Negative (NEGATIVE); PROTEIN,URINE Negative (NEGATIVE)
[2018-02-07 21:47] LABS: BACTERIA,URINE Few /HPF (None Seen); RBC,URINE 0-1 /HPF (0-1)
[2018-02-07 21:48] LABS: BASOPHILS % (AUTO) 0.2 % (0.0-5.0); EOSINOPHILS % (AUTO) 1.2 % (0.0-8.0); HEMATOCRIT 40.2 % (36-48); LYMPHOCYTES % (AUTO) 30.9 % (21.0-51.0); MEAN CORPUSCULAR HGB CONC 34.7 g/dL (32.0-36.0); MEAN CORPUSCULAR VOLUME 92.1 fL (79-99); MONOCYTES % (AUTO) 8.9 % (3.0-13.0); NEUTROPHILS % (AUTO) 58.8 % (40.0-77.0); PLATELET COUNT (AUTO) 210 K/uL (130-400); RED BLOOD CELL COUNT(AUTO) 4.37 MIL/uL (4.00-5.50); RED CELL DISTRIBUTION WIDTH 13.4 % (11.0-15.5); WHITE BLOOD COUNT (AUTO) 14.5 K/uL (4.8-10.8)
[2018-02-07 21:48] LABS: SQUAMOUS EPITHELIAL CELL,UR Rare /HPF (0-2); TRANSITIONAL EPI CELLS,URINE Rare /HPF (None Seen)
[2018-02-07 21:49] LABS: MUCUS,URINE Rare LPF (None Seen)
[2018-02-07 22:02] LABS: INR 1.16 (0.85-1.15); PARTIAL THROMBOPLASTIN TIME 25.3 SEC (26.3-35.5); PROTHROMBIN TIME 12.1 SEC (9.6-11.6)
[2018-02-07 22:06] LABS: CREATININE 0.9 mg/dL (0.5-1.5); POTASSIUM 3.2 mmol/L (3.5-5.1)
[2018-02-07 22:12] LABS: BILIRUBIN,TOTAL 0.5 mg/dL (0.2-1.0); TOTAL PROTEIN, SERUM 7.2 g/dL (6.0-8.3)
[2018-02-07 22:13] LABS: ALBUMIN 3.1 g/dL (3.5-5.0)
[2018-02-07] MEDS ORDERED: AMIODARONE HCL 50 MG/ML 3 ML VIAL ONE ×2 (22:56→23:31)
[2018-02-07] MEDS ORDERED: SODIUM CHLORIDE 0.9% 50 ML IV ONE (22:56)
[2018-02-08] VITALS (7 sets, daily range): BP systolic 109–133; BP diastolic 54–68
[2018-02-08] MEDS ORDERED: POTASSIUM CHLORIDE 10% ELIXIR 20 MEQ/15 ML UDCUP PO PRN (00:15)
[2018-02-08] MEDS ORDERED: AMIODARONE HCL 900 MG in DEXTROSE 5%-WATER 500 ML IV SCH (00:15)
[2018-02-08] MEDS ORDERED: POTASSIUM CHLORIDE 20MEQ/100ML 100 ML IV PRN (00:15)
[2018-02-08] MEDS ORDERED: LIDOCAINE HCL-MPF 1% 2ML VIAL IJ PRN (00:15)
[2018-02-08] MEDS ORDERED: POTASSIUM CHLORIDE 20 MEQ ERTAB PO PRN (00:15)
[2018-02-08] MEDS ORDERED: MAGNESIUM 2GM PREMIX 50ML 50 ML IV ONE ×2 (00:15→01:15)
[2018-02-08] MEDS ORDERED: POTASSIUM CHLORIDE 10 MEQ/TAB.SA PO ONE ×6 (02:55→06:51)
[2018-02-08 06:04] LABS: BASOPHILS % (AUTO) 0.5 % (0.0-5.0); EOSINOPHILS % (AUTO) 1.1 % (0.0-8.0); LYMPHOCYTES % (AUTO) 26.1 % (21.0-51.0); MEAN CORPUSCULAR HEMOGLOBIN 32.6 pg (27.0-33.0); MEAN CORPUSCULAR HGB CONC 34.8 g/dL (32.0-36.0); MEAN CORPUSCULAR VOLUME 93.5 fL (79-99); MONOCYTES % (AUTO) 9.2 % (3.0-13.0); NEUTROPHILS % (AUTO) 63.1 % (40.0-77.0); NUCLEATED RED BLOOD CELLS 0.1 % (0.0-0.19); PLATELET COUNT (AUTO) 145 K/uL (130-400); RED BLOOD CELL COUNT(AUTO) 4.28 MIL/uL (4.00-5.50); RED CELL DISTRIBUTION WIDTH 13.7 % (11.0-15.5); WHITE BLOOD COUNT (AUTO) 12.9 K/uL (4.8-10.8)
[2018-02-08 06:15] LABS: CARBON DIOXIDE 27 mmol/L (21-32); CHLORIDE 100 mmol/L (101-111); CREATINE KINASE MB 0.7 ng/mL (0.5-3.6); CREATINE KINASE, TOTAL 39 U/L (21-232); CREATININE 0.8 mg/dL (0.5-1.5); GLOMERULAR FILTR. RATE CALC 76 mL/min (>60); GLUCOSE,RANDOM 164 mg/dL (70-105); MYOGLOBIN 29 ng/mL (10-92); POTASSIUM 3.7 mmol/L (3.5-5.1); SODIUM SERUM 136 mmol/L (136-145); TROPONIN I < 0.04 ng/mL (0.00-0.06); UREA NITROGEN, BLOOD 15 mg/dL (7-18)
[2018-02-08] MEDS ORDERED: MAGNESIUM 2GM PREMIX 50ML 50 ML IV SCH (06:30)
[2018-02-08] MEDS ORDERED: WATER IV SCH (07:00)
[2018-02-08] MEDS ORDERED: AMIODARONE HCL IV SCH (07:00)
[2018-02-08] MEDS ORDERED: DEXTROSE 5% IV SCH (07:00)
[2018-02-08] MEDS: METFORMIN HCL 500 MG TABLET PO SCH ×2 (08:53→17:24)
[2018-02-08] MEDS: LISINOPRIL 10 MG TABLET PO SCH ×2 (08:53→23:41)
[2018-02-08] MEDS: GLIPIZIDE 5 MG TABLET PO SCH ×2 (08:54→21:22)
[2018-02-08] MEDS: FUROSEMIDE 40 MG TABLET PO SCH (08:54)
[2018-02-08] MEDS: FISH OIL 1000 MG/CAP PO SCH (08:54)
[2018-02-08] MEDS: POTASSIUM CHLORIDE 20 MEQ ERTAB PO SCH (08:54)
[2018-02-08] MEDS: VITAMIN B COMPLEX 1 CAPSULE PO SCH (08:54)
[2018-02-08] MEDS: METOPROLOL TARTRATE 25 MG TAB PO SCH ×2 (08:54→21:23)
[2018-02-08] MEDS: ASPIRIN 81 MG EC TAB PO SCH (08:54)
[2018-02-08] MEDS: APIXABAN 5 MG TABLET PO SCH ×2 (08:54→21:22)
[2018-02-08] MEDS: VITAMIN A 2400 MCG PO SCH (08:56)
[2018-02-08] MEDS ORDERED: ENOXAPARIN SODIUM 40 MG/0.4 ML SYRINGE SQ SCH (09:00)
[2018-02-08] MEDS ORDERED: METOPROLOL TARTRATE 25 MG TAB PO SCH (09:00)
[2018-02-08] MEDS: AMIODARONE HCL 200 MG TABLET PO SCH ×2 (09:02→21:22)
[2018-02-08] MEDS: LACTOBACILLUS RHAMNOSUS GG 1 EACH CAP.SPRINK PO SCH ×2 (09:07→17:24)
[2018-02-08 11:04] LABS: CREATINE KINASE MB 0.8 ng/mL (0.5-3.6); CREATINE KINASE, TOTAL 44 U/L (21-232); MYOGLOBIN 34 ng/mL (10-92); TROPONIN I < 0.04 ng/mL (0.00-0.06)
[2018-02-08] MEDS ORDERED: ALBUTEROL SULFATE 0.083% 2.5 MG/3 ML INH IH SCH (12:00)
[2018-02-08] MEDS: BUDESONIDE 0.5 MG/2 ML INH IH SCH (18:36)
[2018-02-09 03:37] VITALS: BP 118/59
[2018-02-09] MEDS: BUDESONIDE 0.5 MG/2 ML INH IH SCH (06:12)
[2018-02-09] MEDS ORDERED: BISACODYL 5 MG TABLET.DR PO SCH (06:30)
[2018-02-09] MEDS ORDERED: LACTULOSE 20 GM/30 ML UDCUP PO SCH (06:30)
[2018-02-09 07:00] VITALS: BP 125/57
[2018-02-09] MEDS: GLIPIZIDE 5 MG TABLET PO SCH (08:38)
[2018-02-09] MEDS: LACTOBACILLUS RHAMNOSUS GG 1 EACH CAP.SPRINK PO SCH (08:38)
[2018-02-09] MEDS: FISH OIL 1000 MG/CAP PO SCH (08:38)
[2018-02-09] MEDS: VITAMIN B COMPLEX 1 CAPSULE PO SCH (08:39)
[2018-02-09] MEDS: LISINOPRIL 10 MG TABLET PO SCH (08:39)
[2018-02-09] MEDS: METOPROLOL TARTRATE 25 MG TAB PO SCH (08:39)
[2018-02-09] MEDS: POTASSIUM CHLORIDE 20 MEQ ERTAB PO SCH (08:39)
[2018-02-09] MEDS: AMIODARONE HCL 200 MG TABLET PO SCH (08:39)
[2018-02-09] MEDS: ASPIRIN 81 MG EC TAB PO SCH (08:39)
[2018-02-09] MEDS: APIXABAN 5 MG TABLET PO SCH (08:40)
[2018-02-09] MEDS: METFORMIN HCL 500 MG TABLET PO SCH (08:40)
[2018-02-09] MEDS: FUROSEMIDE 40 MG TABLET PO SCH (08:40)
[2018-02-09] MEDS: VITAMIN A 2400 MCG PO SCH (08:47)
[2018-02-09 10:00] VITALS: BP 117/60
[2018-02-09] MEDS ORDERED: APIX5TAB PO (10:11)
[2018-02-09] MEDS ORDERED: AMIO200T5 PO (10:12)
== END 2018-02-09 12:25 | disposition home or self-care (01) | DRG 310 ==
LOC: EDH 20:49 → EDHIP 22:44 → 2AH 23:43 → UNDODEPER 02-08 03:13
PROVIDERS: ADMIT Family Medicine; ATTEND Family Medicine
DX: I48.0 Paroxysmal atrial fibrillation (principal); E11.9 Type 2 diabetes mellitus without complications; E78.5 Hyperlipidemia, unspecified; E83.42 Hypomagnesemia; E87.6 Hypokalemia; I10 Essential (primary) hypertension; J44.9 Chronic obstructive pulmonary disease, unspecified; Z79.4 Long term (current) use of insulin; Z79.899 Other long term (current) drug therapy; Z85.3 Personal history of malignant neoplasm of breast; Z86.73 Personal history of transient ischemic attack (TIA), and cerebral infarction without residual deficits; Z95.3 Presence of xenogenic heart valve
CPT/HCPCS: 36415; 71045; 80048; 80053; 81001; 82550; 82553; 82948; 83605; 83735; 83874; 84484; 85025; 85610; 85730; 93005; 94640; 94664; 99291; J0282; J3475; J3490; J7060

== ENCOUNTER → 2018-05-14 | Outpatient (CLI) | payer OTHER ==
[~2018-05-14] MED LIST changes: +AMIO200T5 PO; +APIX5TAB PO; +METF-446 PO; -METF10004 PO
== END | disposition home or self-care (01) ==
LOC: SHCH 10:50
PROVIDERS: ATTEND Internal Medicine Cardiovascular Disease
DX: I48.0 Paroxysmal atrial fibrillation (principal); I10 Essential (primary) hypertension; E11.9 Type 2 diabetes mellitus without complications; E78.5 Hyperlipidemia, unspecified; J44.9 Chronic obstructive pulmonary disease, unspecified; I25.10 Atherosclerotic heart disease of native coronary artery without angina pectoris; Z87.891 Personal history of nicotine dependence
CPT/HCPCS: 93306

== ENCOUNTER → 2018-05-28 | Outpatient (CLI) | payer OTHER | END | disposition home or self-care (01) | LOC: RAH 13:24 | PROVIDERS: ATTEND Internal Medicine Cardiovascular Disease | DX: I72.9 Aneurysm of unspecified site (principal); I83.813 Varicose veins of bilateral lower extremities with pain; I11.0 Hypertensive heart disease with heart failure; I50.9 Heart failure, unspecified; E11.9 Type 2 diabetes mellitus without complications; E78.5 Hyperlipidemia, unspecified; J44.9 Chronic obstructive pulmonary disease, unspecified; I48.0 Paroxysmal atrial fibrillation; I25.10 Atherosclerotic heart disease of native coronary artery without angina pectoris; Z87.891 Personal history of nicotine dependence | CPT/HCPCS: 76882 ==

== ENCOUNTER → 2018-06-06 | Outpatient (CLI) | payer OTHER ==
[~2018-06-06] MED LIST changes: +LIDOCAINE HCL MPF 1% 5ML VIAL ONE
[2018-06-06 09:32] LABS: INR 1.2 (0.85-1.15); PROTHROMBIN TIME 12.6 SEC (9.6-11.6)
== END | disposition home or self-care (01) ==
LOC: RAH 08:51
PROVIDERS: ATTEND Thoracic Surgery (Cardiothoracic Vascular Surgery)
DX: J90 Pleural effusion, not elsewhere classified (principal); E11.9 Type 2 diabetes mellitus without complications; I10 Essential (primary) hypertension; Z85.3 Personal history of malignant neoplasm of breast; J44.9 Chronic obstructive pulmonary disease, unspecified; I35.0 Nonrheumatic aortic (valve) stenosis; G45.9 Transient cerebral ischemic attack, unspecified; H40.9 Unspecified glaucoma; Z98.51 Tubal ligation status; Z98.890 Other specified postprocedural states; Z87.891 Personal history of nicotine dependence; Z88.8 Allergy status to other drugs, medicaments and biological substances
CPT/HCPCS: 32555; 36415; 71045; 85610; 85730; J3490

== ENCOUNTER → 2018-06-20 | Outpatient (CLI) | payer OTHER ==
[~2018-06-20] MED LIST changes: -LIDOCAINE HCL MPF 1% 5ML VIAL ONE
== END | disposition home or self-care (01) ==
LOC: OIH 11:21
PROVIDERS: ATTEND Thoracic Surgery (Cardiothoracic Vascular Surgery)
DX: J90 Pleural effusion, not elsewhere classified (principal)
CPT/HCPCS: 71046

== ENCOUNTER → 2018-06-25 | Outpatient (CLI) | payer OTHER | END | disposition home or self-care (01) | LOC: OIH 11:10 | PROVIDERS: ATTEND Thoracic Surgery (Cardiothoracic Vascular Surgery) | DX: J90 Pleural effusion, not elsewhere classified (principal) | CPT/HCPCS: 71250 ==

== ENCOUNTER → 2018-08-14 | Outpatient (CLI) | payer OTHER ==
[~2018-08-14] MED LIST changes: +LIDOCAINE HCL 1% 20 ML VIAL ONE
[2018-08-14 08:38] LABS: INR 1.28 (0.85-1.15); PARTIAL THROMBOPLASTIN TIME 27.8 SEC (26.3-35.5); PROTHROMBIN TIME 13.4 SEC (9.6-11.6)
[2018-08-14 11:34] LABS: SPECIMENTYPE,BODY FLUID PLEURAL
[2018-08-14 11:35] LABS: APPEARANCE BODY FLUID CLEAR (CLEAR); BODY FLUID RBC 1183 /cu. mm.; BODY FLUID WBC 243 /cu. mm.; COLOR,BODY FLUID YELLOW (LT YELLOW); TOTAL VOLUME,BODY FLUID 1100 mL
[2018-08-14 11:38] LABS: BF LYMPHOCYTE 76 %; BF MESOTHELIAL 10 %; BF MONOCYTE 10 %
== END | disposition home or self-care (01) ==
LOC: RAH 07:22
PROVIDERS: ATTEND Internal Medicine Hematology & Oncology
DX: J90 Pleural effusion, not elsewhere classified (principal); Z88.8 Allergy status to other drugs, medicaments and biological substances; Z98.890 Other specified postprocedural states; Z79.899 Other long term (current) drug therapy; Z85.3 Personal history of malignant neoplasm of breast; Z82.49 Family history of ischemic heart disease and other diseases of the circulatory system; Z80.3 Family history of malignant neoplasm of breast; Z83.3 Family history of diabetes mellitus; F41.9 Anxiety disorder, unspecified; F32.9 Major depressive disorder, single episode, unspecified; Z79.01 Long term (current) use of anticoagulants
CPT/HCPCS: 32555; 36415; 71045; 83615; 84157; 85610; 85730; 88108; 88305; 89051

== ENCOUNTER → 2020-08-12 | Outpatient (CLI) | payer OTHER ==
[~2020-08-12] MED LIST changes: -AMIO200T5 PO; +AMIO200T6 PO; -ASPI-555 PO; +ASPI-556 PO; -LIDOCAINE HCL 1% 20 ML VIAL ONE
== END | disposition home or self-care (01) ==
LOC: SHCH 11:24
PROVIDERS: ATTEND Internal Medicine Cardiovascular Disease
DX: I08.0 Rheumatic disorders of both mitral and aortic valves (principal); I48.0 Paroxysmal atrial fibrillation
CPT/HCPCS: 93306

== ENCOUNTER → 2023-02-10 | Outpatient (CLI) | payer MEDICARE ==
[~2023-02-10] MED LIST changes: -AMIO200T6 PO; +AMIO200T68 PO; +LISI10TA24 PO; -LISI10TA7 PO; +POTA-192 PO; -POTA20TA12 PO
== END | disposition home or self-care (01) ==
LOC: SHCH 11:34
PROVIDERS: ATTEND Internal Medicine Cardiovascular Disease
DX: I35.0 Nonrheumatic aortic (valve) stenosis (principal); I11.9 Hypertensive heart disease without heart failure; E78.5 Hyperlipidemia, unspecified; Z95.2 Presence of prosthetic heart valve
CPT/HCPCS: 93306

== ENCOUNTER → 2023-03-13 | Outpatient (CLI) | payer MEDICARE ==
[2023-03-13 16:27] LABS: BASOPHILS % (AUTO) 0.5 % (0.0-5.0); EOSINOPHILS % (AUTO) 2.5 % (0.0-8.0); LYMPHOCYTES % (AUTO) 30.1 % (21.0-51.0); MEAN CORPUSCULAR HGB CONC 33.2 g/dL (32.0-36.0); MEAN CORPUSCULAR VOLUME 96.5 fL (79-99); MONOCYTES % (AUTO) 7.9 % (3.0-13.0); NEUTROPHILS % (AUTO) 58.7 % (40.0-77.0); PLATELET COUNT (AUTO) 190 K/uL (130-400); RED BLOOD CELL COUNT(AUTO) 4.25 MIL/uL (4.00-5.50); RED CELL DISTRIBUTION WIDTH 13.1 % (11.0-15.5); WHITE BLOOD COUNT (AUTO) 7.6 K/uL (4.8-10.8)
[2023-03-13 16:51] LABS: ALBUMIN 4.1 g/dL (3.5-5.0); CREATININE 1.1 mg/dL (0.5-1.5); MAGNESIUM 1.8 mg/dL (1.80-2.40); POTASSIUM 4.1 mmol/L (3.5-5.1); TOTAL PROTEIN, SERUM 7.8 g/dL (6.0-8.3)
== END | disposition home or self-care (01) ==
LOC: LAB 13:31
PROVIDERS: ATTEND Physician Assistant
DX: I10 Essential (primary) hypertension (principal)
CPT/HCPCS: 36415; 80053; 83735; 83880; 85025

== ENCOUNTER → 2023-03-21 | Outpatient (CLI) | payer MEDICARE ==
[~2023-03-21] MED LIST changes: +IOHEXOL 350 MG/ML 100ML INFUS..BTL IV ONE
== END | disposition home or self-care (01) ==
LOC: RAH 07:45
PROVIDERS: ATTEND Internal Medicine Cardiovascular Disease
DX: I48.0 Paroxysmal atrial fibrillation (principal); R06.00 Dyspnea, unspecified
CPT/HCPCS: 75574; Q9967

== ENCOUNTER 2023-06-02 16:56 | Emergency (ER) | payer MEDICARE ==
[~2023-06-02 16:56] MED LIST changes: -GLIP5TAB11 PO; +GLIP5TAB15 PO; -IOHEXOL 350 MG/ML 100ML INFUS..BTL IV ONE
[2023-06-02] MEDS ORDERED: DIAZEPAM 5 MG TABLET PO ONE (19:00)
[2023-06-02] MEDS ORDERED: PREDNISONE 20 MG TABLET PO ONE (19:00)
[2023-06-02] MEDS ORDERED: KETOROLAC 60 MG VIAL (30MG/ML) IM ONE (19:00)
[2023-06-02] MEDS ORDERED: ACETAMINOPHEN 500 MG TABLET PO ONE (21:00)
[2023-06-02 23:23] LABS: BASOPHILS # (AUTO) 0.03 K/uL (0.00-0.20); BASOPHILS % (AUTO) 0.3 % (0.0-5.0); EOSINOPHILS # (AUTO) 0.01 K/uL (0.00-0.70); EOSINOPHILS % (AUTO) 0.1 % (0.0-8.0); HEMATOCRIT 43.3 % (36-48); IMMATURE GRANULOCYTE ABSOLUTE 0.02 K/uL (0-1); LYMPHOCYTES % (AUTO) 10.1 % (21.0-51.0); MEAN CORPUSCULAR HEMOGLOBIN 31.1 pg (27.0-33.0); MEAN CORPUSCULAR HGB CONC 33.9 g/dL (32.0-36.0); MEAN CORPUSCULAR VOLUME 91.7 fL (79-99); MONOCYTES # (AUTO) 0.1 K/uL (0.1-1.0); MONOCYTES % (AUTO) 1.3 % (3.0-13.0); NEUTROPHILS # (AUTO) 8.6 K/uL (1.8-7.7); PLATELET COUNT (AUTO) 285 K/uL (130-400); RED BLOOD CELL COUNT(AUTO) 4.72 MIL/uL (4.00-5.50); RED CELL DISTRIBUTION WIDTH 13.1 % (11.0-15.5); WHITE BLOOD COUNT (AUTO) 9.7 K/uL (4.8-10.8)
[2023-06-02 23:33] LABS: CREATININE 1.1 mg/dL (0.5-1.5); POTASSIUM 4.2 mmol/L (3.5-5.1)
[2023-06-02 23:34] LABS: INR 1.19 (0.85-1.15); PROTHROMBIN TIME 13.7 SEC (9.6-11.6)
[2023-06-02 23:35] LABS: PARTIAL THROMBOPLASTIN TIME 30.5 SEC (26.3-35.5)
[2023-06-02 23:38] LABS: ALBUMIN 3.9 g/dL (3.5-5.0); BILIRUBIN,TOTAL 0.6 mg/dL (0.2-1.0)
[2023-06-03] MEDS ORDERED: MORPHINE 4 MG SYG IVP ONE (00:30)
[2023-06-03] MEDS ORDERED: ONDANSETRON 4MG INJ IVP ONE (00:30)
[2023-06-03 01:36] VITALS: BP 111/73; PULSE 78; RESP 18; O2SAT 95
== END 2023-06-03 02:30 | disposition short-term general hospital (02) ==
LOC: EDH 16:56
DX: M48.56XA Collapsed vertebra, not elsewhere classified, lumbar region, initial encounter for fracture (principal); E78.00 Pure hypercholesterolemia, unspecified; I10 Essential (primary) hypertension; Z79.01 Long term (current) use of anticoagulants; Z79.51 Long term (current) use of inhaled steroids; Z79.82 Long term (current) use of aspirin; Z79.84 Long term (current) use of oral hypoglycemic drugs; Z79.899 Other long term (current) drug therapy; Z88.5 Allergy status to narcotic agent
CPT/HCPCS: 99285; 72131; 80053; 85025; 85610; 85730; 36415; 72100; 72128; 96372; 96374; 96375; J1885; J2405; J2270